=== PATIENT | male | born 1955 | race Caucasian/White ===

== ENCOUNTER 2022-01-27 06:36 | Emergency (ER) | payer MEDICARE, SELFPAY ==
--- NOTE | ~2022-01-27 | CT_ITS ---
EXAMINATION: CT lumbar spine wo con DATE: 01/27/2022 07:33 INDICATION: Prior back surgery now with intractable back pain TECHNIQUE: Computed tomography (CT) of the lumbar spine was performed without intravenous contrast. A utomated exposure control and iterative reconstruction technique were employed. The dose-length produ ct was 640.72 mGy-cm. COMPARISON: None FINDINGS: L4 laminectomy. 18 degree levoscoliosis between L2 and L5. 4 mm anterolisthesis L4 on L5 with associa noah severe degenerative endplate changes and mild loss of right-sided vertebral body height loss at L 4. Remaining vertebral body heights are normal. Moderate to severe right-sided disc height loss at L3 -L4 and mild right-sided and severe left-sided disc height loss at L2-L3. No fracture identified. Vis ualized paravertebral soft tissues are unremarkable. The following disc levels are specifically discu ssed: T12-L1: The disc does not extend beyond the endplate margin. There is mild bilateral facet joint oste oarthritis. There is no neural foraminal stenosis. There is no central canal stenosis. L1-L2: Disc is mildly bulging. There is mild bilateral facet joint osteoarthritis. There is mild left neural foraminal stenosis. There is mild central canal stenosis. L2-L3: Disc is bulging. There is mild bilateral facet joint osteoarthritis. There is mild right and m oderate left neural foraminal stenosis. There is mild central canal stenosis. L3-L4: Disc is bulging. There is mild left and moderate right facet joint osteoarthritis. There is mo derate right and mild to moderate left neural foraminal stenosis. There is mild central canal stenosi s. L4-L5: Disc is bulging. There is moderate to severe bilateral facet joint osteoarthritis. There is mo derate left and moderate to severe right neural foraminal stenosis. There is mild central canal steno sis with L4 laminectomy and posterior decompression. L5-S1: Disc is bulging. There is moderate bilateral facet joint osteoarthritis. There is mild left ne ural foraminal stenosis. There is no central canal stenosis. IMPRESSION: 1. 18 degree lumbar levoscoliosis with severe spondylosis. 2. L4 laminectomy. Reviewed, dictated and finalized at location A.
[2022-01-27 06:39] VITALS: BP 152/94; PULSE 69; RESP 18; TEMP 36.6; O2SAT 100
--- NOTE | 2022-01-27 07:15 | ED.BACK ---
HPI - Back Pain/Injury General Chief Complaint: Back Pain/Injury Stated Complaint: back pain Time Seen by Provider: 01/27/22 07:09 History of Present Illness HPI Narrative: 66-year-old male presents emergency room secondary pain to the lower back. States the pain radiates down his right leg. He had back surgery performed at L3, L4, L5 approximately 3 years ago. Had a laminectomy at that time. 10 weeks ago he had left knee replacement done. His results of that he was informed he had to sleep flat of his back. He normally sleeps on his side. States he can sleep on his back he has had intractable pain. Is been seeing his chiropractor he and his chiropractor come to the conclusion that is nothing else he can do to alleviate the pain. Chiropractor suggested to him that he may have a compression fracture of his spine. However he had no trauma. Be more concerned that he is got the lumbar radiculopathy this time. Denies any issues with bowel or bladder at this point. States she just cannot get control of the pain recently Related Data Allergies Allergy/AdvReac Type Severity Reaction Status Date / Time No Known Allergies Allergy Verified 01/27/22 07:42 Review of Systems Review of Systems: CONSTITUTIONAL: Denies fever, chills, or sweats. EYES: Denies visual changes, redness, or discharge. ENT: Denies rhinorrhea, congestion, sore throat, or otalgia. CARDIOVASCULAR: Denies chest pain, palpitations, or edema. RESPIRATORY: Denies cough or dyspnea. GASTROINTESTINAL: Denies abdominal pain, nausea, vomiting, or diarrhea. GENITOURINARY: Denies dysuria or hematuria. SKIN: Denies rash or itching. MUSCULOSKELETAL: Pain to the right lower lumbar region with radiation to the right leg. NEUROLOGIC: Denies headache, numbness, or weakness. PSYCHIATRIC: Denies anxiety or depression. [facility] Past Medical History Medical History Arthritis BPH (benign prostatic hyperplasia) Cluster headaches Compression of intervertebral disc Compression of nerve Wolf catheter in place Inguinal hernia Kidney stone Scoliosis Seasonal allergies Surgical History Surgical History H/O cervical spine surgery x3 H/O inguinal hernia repair H/O laminectomy H/O left knee surgery x5 Hx of tonsillectomy Hx of vascular surgery thoracic outlet subclavian clot surgery Status post lumbar spine surgery for decompression of spinal cord Family History Family History Sibling Family history of diabetes mellitus in first degree relative Grandparent Diabetes mellitus Social History Social History Alcohol intake: never Exam Narrative: APPEARANCE: Well appearing, no pain or distress, well-nourished. Head normocephalic and atraumatic. EYES: PERRLA/EOMI, conjunctivae very clear. NOSE: Normal with no drainage EARS:TMS clear Laith Deluna, with good light reflex. THROAT: Pharynx clear, no exudate. NECK: Supple. No adenopathy, no masses. RESPIRATORY: Airway patent, respirations nonlabored. Clear to auscultation bilaterally, no rales, rhonchi, wheezing. CARDIOVASCULAR: Regular rate and rhythm without murmurs, rubs, or gallops. ABDOMINAL: Soft, nontender, nondistended, no hepatosplenomegaly Musculoskeletal: Moves all extremities. Strength/ROM intact, No edema, No calf tenderness. Positive straight leg raising on the right side about 60 degrees. Has reproducible tenderness to palpation in the lower lumbar region in the midline as well as some to the right side. NEURO: Alert. Cranial nerves II through XII intact. Normal gait. Good coordination. Nonfocal examination. SKIN:: Warm, dry. Normal Color PSYCHIATRIC: Normal affect/mood, normal interaction Course Vital Signs Vital signs: Vital Signs Temperature 98 F 01/27/22 06:39 Pulse Rate 69 01/27/22 06
[2022-01-27] MEDS: KETOROLAC 30 MG/ML VIAL (*BKC) IM (07:40)
[2022-01-27 07:42] VITALS: BP 148/88; PULSE 60; RESP 14; O2SAT 100
[2022-01-27 08:20] VITALS: BP 123/87; PULSE 88; RESP 17; O2SAT 97
== END 2022-01-27 08:20 | disposition home or self-care (01) ==
PROVIDERS: Emergency Provider Emergency Medicine; PCP Internal Medicine
DX: M47.26 Other spondylosis with radiculopathy, lumbar region (principal); N40.0 Benign prostatic hyperplasia without lower urinary tract symptoms; M19.90 Unspecified osteoarthritis, unspecified site; Z87.442 Personal history of urinary calculi
CPT/HCPCS: 72131; 96372; 99284; J1885

== ENCOUNTER 2022-11-25 07:41 | Outpatient (CLI) | payer MEDICARE, SELFPAY | END 2022-11-25 07:42 | disposition home or self-care (01) | LOC: ANHSURGERY 07:44 | PROVIDERS: PCP Internal Medicine; Visit Provider Urology | DX: N40.0 Benign prostatic hyperplasia without lower urinary tract symptoms (principal) | CPT/HCPCS: 87086 ==

== ENCOUNTER 2022-12-06 01:33 | Day surgery (SDC) | payer MEDICARE, SELFPAY ==
[2022-11-24 10:38] VITALS: BMI 23.6
--- NOTE | 2022-11-24 11:06 | PC.NURSE ---
Report to the Outpatient Waiting Room, entrance under the green pavilion located off [facility], at time __6:00AM on date __12/06/22 . Planned Procedure Time: _7:30AM . Time changes happen often and if your time is changed the preop area will call you the afternoon before. - You and your visitor will be asked to self-screen and do not enter if you have any COVID symptoms. - A mask is optional within the hospital at this time. Patients may have clear liquids (water, carbonated beverages, clear teas, apple juice) until 3 hours prior to surgery with a maximum of 20 ounces. - No food from midnight until time of surgery Take the following medications with a SIP of water the morning of surgery: __TRAMADOL NEEDED DO NOT STOP ANY OF YOUR OTHER PRESCRIPTION MEDICATIONS PRIOR TO SURGERY ?EXCEPT THE FOLLOWING Medications to discontinue per physician ____HOLD ALL VITAMINS/SUPPLEMENTS 3 DAYS PRE-OP PER ANESTHESIA Date to take last dose 12/02/22 Please no make-up, nail danish, hairspray, perfume, deodorant, or body powder the day of surgery. No jewelry (including any body piercings) or valuables the day of surgery, leave them at home. Please take a shower or bath the night before, or the morning of, surgery with an antibacterial soap. Wear comfortable, loose fitting clothing. Children are encouraged to wear pajamas. - Jewelry must be removed prior to entering the operating room. Rings and piercings that are not removed may be cut off. - The hospital will not accept responsibility for valuables. - Please leave all valuables, including medications, at home the day of surgery. If you are going home after surgery, a licensed bung driver must drive you home. - NO public transportation without another adult if you receive anesthesia. - We recommend that an adult stay with you for 24 hours following discharge. - We also recommend that you do not drive, make important decision, drink alcoholic beverages, or take any drugs that were not prescribed by your health care provider for at least 24 hours after your discharge time. Follow any additional instructions given to you from your surgeon. If you or anyone in your household have experienced Covid symptoms in the past week, please notify your surgeon or the nurse liaison at the phone number below for possible testing. Telephone instructions given to __PATIENT and asked if any additional questions and then verbalized understanding. Patient advised to call surgeon office or pre surgery nurse liaison [phone] if any additional questions.
--- NOTE | 2022-12-05 09:17 | P.PNAN_ITS ---
Anes - Initial Pre Proc Eval Procedure: Operation Date: 12/06/22 07:30 Proposed Procedures p Urolift - Javi Sweeney MD Date/Time: 12/05/22 09:17 Surgeon: Javi Sweeney MD Pre Op Diagnosis: BPH, Retention Patient Data Age: 67 Gender: M Height: 1.8 m Weight: 77 kg Allergies Allergy/AdvReac Type Severity Reaction Status Date / Time No Known Allergies Allergy Verified 11/24/22 10:30 Home Medications Medication Instructions Recorded Confirmed Type cholecalciferol (vitamin D3) 10 20 mcg PO DAILY 11/24/22 11/24/22 History mcg (400 unit) capsule diclofenac sodium 75 mg 75 mg PO BID 11/24/22 11/24/22 History tablet,delayed release geriatric multivitamin-min 1 tablet PO DAILY 11/24/22 11/24/22 History tamsulosin 0.4 mg capsule 0.4 mg PO QAM 11/24/22 11/24/22 History tizanidine 4 mg tablet 4 mg PO Q6-8H PRN Muscle Spasm 11/24/22 11/24/22 History tramadol 50 mg tablet 50 mg PO BID PRN Pain 11/24/22 11/24/22 History trazodone 100 mg tablet 100 mg PO HS 11/24/22 11/24/22 History Patient hx anesthesia problems: none Family hx anesthesia problems: none Results Review: All pre-operative results and documents have been reviewed as part of the pre- operative evaluation. [facility] Past Medical History Medical History Arthritis BPH (benign prostatic hyperplasia) Cluster headaches Compression of intervertebral disc Compression of nerve Wolf catheter in place Inguinal hernia Kidney stone Scoliosis Seasonal allergies Surgical History Surgical History H/O cervical spine surgery x3 H/O inguinal hernia repair H/O laminectomy H/O left knee surgery x5 Hx of tonsillectomy Hx of vascular surgery thoracic outlet subclavian clot surgery Status post lumbar spine surgery for decompression of spinal cord Family History Family History Sibling Family history of diabetes mellitus in first degree relative Grandparent Diabetes mellitus Social History Social History Smoking status: Former smoker Tobacco type: cigars Additional smoking assessment comments: QUIT SMOKING THE OCCASSIONAL CIGAR ~1999 Alcohol intake: never Substance use: never Living arrangements: with family Additional living arrangements comments: & MOTHER Spiritual care concerns: No Anes - Eval Final PreProcedure Day of Procedure 12/05/22 09:17 Patient weight: normal Heart: regular rate and rhythm Lungs: clear to auscultation Airway: Mallampati scale class II Neurological: alert and oriented Last oral intake: >/= 8 hours ASA classification: II Emergent: no Anesthetic plan: proceed Anesthesia type and monitoring: general LMA and standard monitoring Results Review: All pre-operative results and documents have been reviewed as part of the pre- operative evaluation. Informed Consent: The patient's anesthetic plan and its attendant risks and benefits were discussed with the patient/family/POA. Questions were solicited and answers provided to the satisfaction of the patient/family/POA.
[2022-12-06] VITALS (15 sets, daily range): BP systolic 115–172; BP diastolic 74–104; PULSE 51–71; RESP 10–18; TEMP 35.9–36.3; O2SAT 99–100
[2022-12-06] MEDS: LACTATED RINGERS 1,000 ML 30 ML IV CONT ×2 (07:14→08:24)
--- NOTE | 2022-12-06 07:18 | WPDHPUPDATE1 ---
History and Physical Update Update Date/Time: 12/06/22 07:18 History and Physical has been reviewed, including an updated exam of the patient. There are NO changes in the patient's condition. Risks, benefits, and alternatives have been discussed and questions answered. Patient agrees to proceed with procedure. Proceed with Urolift
--- NOTE | 2022-12-06 07:21 | WPDHPUPDATE1 ---
History and Physical Update Update Date/Time: 12/06/22 07:21 History and Physical has been reviewed, including an updated exam of the patient. There are NO changes in the patient's condition. Risks, benefits, and alternatives have been discussed and questions answered. Patient agrees to proceed with procedure. Proceed with Uronav us and prostate biopsy.
[2022-12-06] MEDS: ceFAZolin 2 GM/D5W 50 ML 2 GM/50 ML BAG IVPB (07:42)
[2022-12-06] MEDS: LIDOCAINE HCL 2% GEL UROJET 10 ML PKG MUCOUS MEM (08:02)
--- NOTE | 2022-12-06 08:08 | SUR.OPER ---
UROLIFT UL2-CHK LOT [id number] X1 2022-12-15, CARTRIDGE LOT [id number] X4 2023-04-13, CARTRIDGE LOT [id number] X1 2023-06-27
--- NOTE | 2022-12-06 08:18 | W.PM.PROC2 ---
Procedure Note - Detailed Date of Procedure 12/06/22 Pre-op Diagnosis BPH, Retention Post-op Diagnosis Same (Urethral stricture) Procedure Performed Cystoscopy, urethral dilatation up to 22 Ecuadorean, UroLift with 6 solomon, complex Wolf placement Surgeon Javi Sweeney MD Anesthesia General Description of Procedure Patient is taken the operative suite correctly identified. Once anesthesia was obtained was placed in dorsal lithotomy position and prepped draped usual sterile fashion. The UroLift scope was then inserted into the urethra but in the bulbar area there was narrowing we could not pass it. I then dilated the urethra to 24 Ecuadorean using male sounds. The UroLift scope was then inserted without difficulty. There is no tumors noted. We then placed 6 solomon. The 1st staple was then placed 1.5 cm proximal to the bladder neck at the 2 o'clock position. Similar staple was placed on the right side. I then placed solomon at the level of the verumontanum bilaterally. Two additional solomon were placed on a protruding lobe from the left side. He did have slight using a given the dilatation decided to place a Wolf catheter. 2% viscous lidocaine was inserted urethra. Eighteen Ecuadorean Wolf was inserted and inflated with 10 cc of sterile water. The will be weaned to off in the recovery room and he will be discharged home with Wolf for overnight. Drains Yes Packing No Pathology None sent Complications No immediate complications Condition Stable Disposition PACU
[2022-12-06] MEDS: fentaNYL CITRATE INJ (*CRX) 100 MCG/2 ML VIAL 25 MCG IV PUSH ×4 (08:48→09:01)
[2022-12-06] MEDS: oxyBUTYnin CHLORIDE 5 MG TABLET PO (08:57)
--- NOTE | 2022-12-06 09:58 | SUR.PHASEI ---
PER DR SULLIVAN URINE IS CLEAR ENOUGH TO DISCONTINUE CBI
--- NOTE | 2022-12-06 10:35 | SUR.PHASEII ---
1035 - Dr Sweeney made aware of bloody color of urine. Requested to look at it before proceeding with discharge.
[2022-12-06] MEDS: oxyCODONE HCL (*CRX) 5 MG TAB IR PO (10:56)
--- NOTE | 2022-12-06 12:27 | SUR.PHASEII ---
1215 - Pt braun running mostly clear, with slight pink tinged urine. Changed to leg bag. pt instructed on how to emptybag. Also instructed on and supplied with a syringe to remove braun in a.m. Verbalizes understanding.
== END 2022-12-06 12:45 | disposition home or self-care (01) ==
PROVIDERS: PCP Internal Medicine; Visit Provider Urology
PROC: 0T7D8DZ Dilation of Urethra with Intraluminal Device, Via Natural or Artificial Opening Endoscopic (ICD-10-PCS; CPT 52441; principal; 2022-12-06 07:30)
DX: N40.1 Benign prostatic hyperplasia with lower urinary tract symptoms (principal); R33.8 Other retention of urine
CPT/HCPCS: C9740; A9270; J0690; J1100; J2250; J2405; J2704; J3010; J7120; L8699